=== PATIENT | female | born 1985 | race Caucasian/White ===

== ENCOUNTER 2016-09-19 18:09 | Emergency (ER) | payer OTHER, MEDICAID ==
[~2016-09-19] VITALS: Ht 157.5 cm; Wt 66.4 kg
[~2016-09-19 18:09] MED LIST: AZIT250T6 PO; BIRTH CONTROL; IBUP-1547 PO; PREN1TAB73 PO
--- OUTSIDE RECORDS SUMMARY | 2016-09-19 18:13 | XMS REPORT | Continuity of Care Document ---
Author Author [facility] Organization [facility] Address Unknown Phone Unavailable Support Name Relationship Address Phone ARIELLE ROWAN MADELINE Caregiver [address] [place] [address] Unavailable LINATANISHA ROSALESIC Next Of Kin [address] [phone] Insurance Providers Guarantor Tip Bain Address [address] [phone] Email DENIED/06/24/16 Payer [facility] Community Plan Policy Number [id number] Subscriber's Name Tip Bain Relationship 18 Self Effective Date 16 Expiration Date 16 Payer Other A Insurance Policy Number [id number] Subscriber's Name Bryan Taylor S Relationship 01 Spouse Group Number [id number] Chief Complaint and Reason for Visit Chief Complaint Cough,Fever,Flu,URI Reason for Visit Upper respiratory infection Problems Active Problems Medical Problem Onset Date Status (spontaneous vaginal delivery) Unknown Past Problems Medical Problem Onset Date Upper respiratory infection Unknown Medications Current Home Medications Medication Dose Units Route Directions Days Qty Instructions Start Date Azithromycin 250 Mg Tablet 1 Tab Oral Daily 6 Tablet TAKE TWO TABLETS ON DAY ONE, THEN ONE TABLET DAILY UNTIL ALL TAKEN. Supervising physician Dr. Neftaly Mike Shaper [facility] [address] [phone] 08/27/16 Control 08/27/16 Ibuprofen 800 Mg Tablet 800 Mg Oral Every 8 Hours as needed for Pain 30 Tablet 06/25/16 Pnv95/Ferrous Fumarate/Fa ( Tablet) 1 Each Tablet 1 Tab Oral Daily 90 Tablet 08/27/16 Social History No social history. Hospital Discharge Instructions No hospital discharge instructions. Plan of Care Discharge Date 08/27/16 12:55pm Disposition 01 DISCHARGED HOME, SELF-CARE Condition at Discharge Stable Instructions/Education Provided Upper Respiratory Infection (ED) Prescriptions See Medication Section Additional Instructions/Education Take azithromycin. Follow with primary care provider this week. Functional Status No functional status results. Allergies, Adverse Reactions, Alerts No known allergies. Immunizations No immunization records. Vital Signs Acute Vital Signs Vital Response Date/Time Temperature (Fahrenheit) 97.2 deg F (96.8 - 99.1) 08/27/2016 12:36pm Temperature (Calculated Celsius) 36.46351 degrees C (36.0 - 37.3) 08/27/2016 12:36pm Pulse Rate (adult) 86 bpm (60 - 100) 08/27/2016 12:36pm Respiratory Rate 16 breaths/min (10 - 20) 08/27/2016 12:36pm O2 Sat by Pulse Oximetry 96 % (90 - 100) 08/27/2016 12:36pm Oxygen Delivery Method Room Air 06/25/2016 12:55am Blood Pressure 116/78 mm Hg 08/27/2016 12:36pm Blood Pressure Source Automatic Cuff 06/25/2016 8:35am Height (Feet) 5 feet 08/27/2016 12:36pm Height (Inches) 61.00 inches 08/27/2016 12:36pm Weight (Kilograms) 67.500 kg 08/27/2016 12:36pm Body Mass Index (BMI) 7.0 08/27/2016 12:36pm Results Laboratory Results Test Name Result Units Flags Reference Collection Date/Time Result Date/ Time Comments White Blood Count 8.4 T/MM3 4.5-11.0 06/23/2016 9:07pm 06/23/2016 9: 12pm Red Blood Count 3.94 M/MM3 L 4.00-5.20 06/23/2016 9:07pm 06/23/2016 9: 12pm Hemoglobin 12.2 GM/DL 12-16 06/23/2016 9:07pm 06/23/2016 9:12pm Hematocrit 36.1 % 36-46 06/23/2016 9:07pm 06/23/2016 9:12pm Mean Corpuscular Volume 91.6 UM3 80-100 06/23/2016 9:07pm 06/23/2016 9: 12pm Mean Corpuscular Hemoglobin 31.0 UUG 26-34 06/23/2016 9:07pm 2016 9:12pm Mean Corpuscular Hemoglobin Concent 33.8 GM/DL 31-37 06/23/2016 9:07pm 06/23/2016 9:12pm RDW Standard Deviation 42.0 FL 36.9-50.2 06/23/2016 9:07pm 06/23/2016 9 :12pm Platelet Count 106 T/MM3 L 130-400 06/23/2016 9:07pm 06/23/2016 9:12pm Mean Platelet Volume 12.3 UM3 9.4-12.4 06/23/2016 9:07pm 06/23/2016 9: 12pm Procedures Procedure Status Date Provider(s) Obstetrical care Completed 06/23/16 EL ARMSTRONG MD DELIVERY OF PRODUCTS OF CONCEPTION, EXTERNAL APPROACH Completed 06/24/16 EL ARMSTRONG MD REPAIR PERINEUM MUSCLE, OPEN APPROACH Completed 06/24/16 EL ARMSTRONG MD Encounters Encounter Location Arrival/Admit Date Discharge/Depart Date Attending Provider Departed Emergency Room [facility] 08/27/16 12:16pm 08/27/16 12: 55pm ARIELLE ROWAN APRN Discharged Inpatient [facility] 06/23/16 8:40pm 06/25/16 12:05pm SANDRA BARTLETT MD Recent Diagnosis
[2016-09-19 18:16] VITALS: Ht 157.5 cm; Wt 66.4 kg
--- NOTE | 2016-09-19 18:16 | NUR ---
ROOM PATIENT AMBULATORY TO ROOM. AND BABY
[2016-09-19] MEDS ORDERED: ONDANSETRON ODT 4 MG TAB PO ONE (18:30)
[2016-09-19] MEDS ORDERED: HYDROCODONE/APAP 5 mg/325 mg TABLET PO ONE (18:30)
--- NOTE | 2016-09-19 18:30 | ERPDOC ---
Departure Disposition Decision Date: Sep 19, 2016 Disposition Decision Time: 21:21 Disposition: 01 DISCHARGED HOME, SELF-CARE Impression Impression Impression: Primary Impression: Common bile duct stone Severity: Moderate Condition: Stable Seen By: Mid-level only Patient Instructions: Gallstones (ED) Problems/Meds/Labs Reviewed?: Yes Medications reviewed and manag: Yes Follow up care ordered?: Yes Mental Status: Alert HPI - Abdominal Pain General Chief Complaint: Abdominal Pain Stated Complaint: VOMITING, ABD VANDANA,BACK PAIN Time Seen by Provider: 18:16 Source: patient History/Exam Limitations: no limitations HPI - Abdominal Pain Initial Comments She has had some RUQ and right flank pain today at home. This has been off and on for the last few days. Today around 1300 it became more constant and more intense. She has had some nausea and vomiting today. Denies any fever or chills or diarrhea. She is 12 weeks post and is . She has not had pain like this in the past at all. Occurred At: home Onset: Rapid Duration: 12-24 hrs Quality: sharpness Location: RUQ, right flank Radiation: no radiation 1 - area of pain 2 - area of pain Activities at Onset: none Associated Symptoms: back pain (right mid back/flank), nausea/vomiting, DENIES : chest pain, diaphoresis, fatigue, fever/chills, headache, heartburn, rash, shortness of breath, swelling/mass in abdomen, syncope, weakness Hx of Similar Symptoms: No Allergies: Coded Allergies: No Known Allergies (Unverified , 09/19/16) Past History Past Medical History Pt denies signifigant PMH Surgical History Denies Surgeries Family History Family History: Negative Social History Smoking Status: Never smoker Substance Use Type: does not use Alcohol Intake: none Review of Systems Constitutional Constitutional: DENIES: appetite decrease, chills, dizziness, fatigue, fever, weakness Cardiovascular Cardiac: DENIES: chest pain, orthopnea Rhythm/Rate: DENIES: irregular beat, palpitations Pulmonary Respiratory: DENIES: cough, dyspnea, sputum, tachypnea GI Upper Abdomen: nausea, pain, vomiting Lower Abdomen: DENIES: constipation, diarrhea, pain Integumentary Skin: DENIES: rash Neurological General: DENIES: headache, numbness, tingling, weakness Physical Exam General General Nourishment: well nourished, well developed, appears stated age, no acute distress, adult General Body Habitus: well groomed Vitals and Pain First Documented Vital Signs Date Time Temp Pulse Resp B/P Pulse Ox O2 Delivery O2 Flow Rate FiO2 09/19/16 18:15 88 16 126/71 98 Room Air 09/19/16 18:16 98.2 Weight: Kilograms: Height (feet): 5 Height (inches): 61.00 Triage Pain Scale: RN VS reviewed by Provider: Yes Normal Exams: Neck: Full range of motion, without adenopathy, JVD, bruits or thyromegaly Chest/Resp: Clear all high, with good airflow, and symmetry bilaterally CV: Regular rate and rhythm, without murmur or gallop, Pulses 2+ all extremities, capillary refill, <2 seconds all ext., no pedal edema noted Abdomen: Bowel sounds positive, non-distended, no hepatosplenomegaly, masses or bruits noted Lymphatic: No lymphadenopathy, or lymphedema noted Integumentary: No rashes, hives, or bruising noted Neurologic: Patient is alert, and oriented Psychiatric: Patient exhibits, appropriate attention, emotion and affect Abdomen Inspection: NOT FOUND: distention Palpation: FOUND: Orourke's sign, involuntary guarding, soft, tender (RUQ), NOT FOUND: rebound, voluntary guarding Auscultation: FOUND: normoactive Differential Diagnoses Considering: Biliary Colic, Bowel Obstruction, Cholecystitis, Constipation, GERD, GI Bleed, Hepatitis Progress Results/Orders Orders Procedure Category Date Status Time Lipase LAB 09/19/16 Complete Cbc W/Auto LAB 09/19/16 Complete Diff-Reflex Manual Cmp - Comprehensive LAB 09/19/16 Complete Metabolic Ondansetron Odt PHA 09/19/16 Complete (Zofran Odt) 18:30 Hydrocodone/Acetaminophen PHA 09/19/16 Complete ([place] 5/325) 18:30 Us Gallbladder US 09/19/16 Taken Lab Results Laboratory Tests Test 09/19/16 18:41 White Blood Count 10.6T/MM3 Red Blood Count 4.65M/MM3 Hemoglobin 14.1GM/DL Hematocrit 41.6% Mean Corpuscular Volume 89.5UM3 Mean Corpuscular Hemoglobin 30.3UUG Mean Corpuscular Hemoglobin Concent 33.9GM/DL RDW Standard Deviation 39.7FL Platelet Count 223T/MM3 Mean Platelet Volume 10.7UM3 Immature Granulocyte % (Auto) 0.4% Neutrophils (%) (Auto) 81.4% Lymphocytes (%) (Auto) 9.3% Monocytes (%) (Auto) 8.4% Eosinophils (%) (Auto) 0.4% Basophils (%) (Auto) 0.1% Absolute Immature Granulocyte (auto 0.04T/MM3 Absolute Neutrophils (auto) 8.7T/MM3 Absolute Lymphocytes (auto) 1.0T/MM3 Absolute Monocytes (auto) 0.9T/MM3 Absolute Eosinophils (auto) 0.0T/MM3 Absolute Basophils (auto) 0.0T/MM3 Turbidity < 20 Sodium Level 147MEQ/L Potassium Level 4.2MEQ/L Chloride Level 105MEQ/L Carbon Dioxide Level 27MEQ/L Anion Gap 15MEQ/L Blood Urea Nitrogen 13.0MG/DL Creatinine 0.8MG/DL Glomerular Filtration Rate Calc 83 BUN/Creatinine Ratio 16RATIO Glucose Level 120MG/DL Calculated Osmolality 283MOSM/KG Calcium Level 9.8MG/DL Total Bilirubin 1.60MG/DL Icterus Index < 2 Aspartate Amino Transf (AST/SGOT) 720U/L Alanine Aminotransferase (ALT/SGPT) 354U/L Alkaline Phosphatase 209U/L Total Protein 8.0G/DL Albumin 4.4G/DL Globulin 3.6G/DL Albumin/Globulin Ratio 1.2RATIO Lipase 93U/L Chemistry Specimen Hemolysis < 15 Medications Current ED Medications Ondansetron HCl (Zofran Odt) 4 mg O ONCE PO Last administered on 09/19/16 18: 32; Start 09/19/16 at 18:30; Stop 09/19/16 at 18:31; Status DC Acetaminophen/ Hydrocodone Bitart ([place] 5/325) 1 tab O ONCE PO Last administered on 09/19/16 18:32; Start 09/19/16 at 18:30; Stop 09/19/16 at 18:31 ; Status DC Progress Progress WBC today is 10.6 with 81.4 neutrophils. Total bili is elevated at 1.60, AST-720 , ALT-354, Alk Phos-209. Lipase today is normal at 93. I am going to go ahead and get an US of her gallbladder today while in ER due to elevated liver enzymes. US shows gallstones and thickened gallbladder. Dilated common bile duct as well. Did talk with Dr Garcia regarding labs and US report. Patient will need to have an ERCP done prior to cholecystectomy. Did call and speak with Dr Rm who is agreeable to doing to procedure at [facility]. Will admit to [facility] hospitalist, she is accepted for admission by Dr. Gonzalez. Patient doing well. Pain well controlled with the [place] and nausea is gone with the Zofran. She does elect to go POV to [facility]. She is stable and pain controlled. Will allow transport via POV. Ultrasound US : Reason for Exam: Elevated LFT Ultrasound: Gallbladder US Interpretation: Abnormal (thickened gallbladder with gallstones, dilated common bile duct) JENNYFER GAMINO APRN Sep 19, 2016 18:30
[2016-09-19] MEDS ORDERED: NORE0.355 PO (18:38)
--- NOTE | 2016-09-19 18:42 | NUR ---
LAB LAB DRAW DONE.
[2016-09-19 18:51] LABS: BASOPHILS % (AUTO) 0.1 % (0-2); EOSINOPHILS % (AUTO) 0.4 % (0-4); HCT - HEMATOCRIT 41.6 % (36-46); HGB - HEMOGLOBIN 14.1 GM/DL (12-16); IMMATURE GRANULOCYTE # (AUTO) 0.04 T/MM3 (0.00-0.03); IMMATURE GRANULOCYTE % (AUTO) 0.4 % (0.0-0.5); LYMPHOCYTES % (AUTO) 9.3 % (23-45); MEAN CORPUSCULAR HGB 30.3 UUG (26-34); MEAN CORPUSCULAR HGB CONC(MCHC 33.9 GM/DL (31-37); MEAN CORPUSCULAR VOLUME 89.5 UM3 (80-100); MEAN PLATELET VOLUME 10.7 UM3 (9.4-12.4); MONOCYTES # (AUTO) 0.9 T/MM3 (0-0.8); MONOCYTES % (AUTO) 8.4 % (0-9.0); NEUTROPHILS #(AUTO)-ABSOLUTE 8.7 T/MM3 (1.8-7.7); NEUTROPHILS % (AUTO) 81.4 % (33-66); RED BLOOD COUNT 4.65 M/MM3 (4.00-5.20); WBC - WHITE BLOOD COUNT 10.6 T/MM3 (4.5-11.0)
[2016-09-19 18:56] LABS: ALBUMIN 4.4 G/DL (3.5-5.0); ALBUMIN/GLOBULIN RATIO 1.2 RATIO (1.1-2.2); ALKALINE PHOSPHATASE 209 U/L (38-126); ALT (SGPT) 354 U/L (9-52); ANION GAP 15 MEQ/L (5-15); AST (SGOT) 720 U/L (14-36); BUN/CREATININE RATIO 16 RATIO (6-26); CALCIUM 9.8 MG/DL (8.4-10.2); CHLORIDE 105 MEQ/L (98-107); CO2 - CARBON DIOXIDE 27 MEQ/L (22-30); CREATININE 0.8 MG/DL (0.7-1.2); GLOMERULAR FILTRATION RATE 83; GLUCOSE 120 MG/DL (65-110); LIPASE 93 U/L (23-300); POTASSIUM 4.2 MEQ/L (3.6-5); SODIUM 147 MEQ/L (134-144)
--- NOTE | 2016-09-19 19:39 | NUR ---
UPDATE PATIENT STATES HER PAIN IS STILL THERE, BUT BETTER. IT'S MANAGEABLE.
--- NOTE | 2016-09-19 21:33 | NUR ---
PLACE IN FACILITY PATIENT WILL GO TO [facility], ROOM 5048, [address]. WILL GO IN THROUGH ER AND BE DIRECT ADMIT.
[2016-09-19 21:44] VITALS: BP 137/83; PULSE 107; RESP 16; TEMP 98.2; O2SAT 98
--- NOTE | 2016-09-19 21:44 | NUR ---
DEPART PATIENT DEPARTS ER WITH AND BABY. PRIVATE VEHICLE TO [facility]. CONDITION STABLE.
--- NOTE | 2016-09-19 21:47 | NUR ---
REPORT REPORT CALLED TO: ESA SILVA. REPORT GIVEN.
--- NOTE | 2016-09-20 08:49 | DI ---
Indication: ITS.REASON: RUQ abdominal pain, elevated LFT PROCEDURE: US GALLBLADDER: Encounter: Initial Comparison: None Technique: Grayscale and color Doppler sonographic imaging of the right upper quadrant of the abdomen was performed. Findings: Hepatic parenchyma is homogeneous without evidence for focal mass. The gallbladder contains stones and the wall is borderline thickened measuring 3.6 mm. No pericholecystic fluid appreciated. Sonographic Orourke sign was absent. The common bile duct is mildly dilated to 7 mm. No intrahepatic biliary ductal dilatation identified. Visualized portions of the head and body of the pancreas are unremarkable. The right kidney is present without collecting system dilatation. The right kidney measures 11.1 cm in length. Impression: Cholelithiasis with borderline gallbladder wall thickening and mild dilatation of the common bile duct raising consideration for acute cholecystitis, although sonographic Orourek sign was absent and no significant pericholecystic fluid was appreciated. The above report concurs with the preliminary report provided by virtual radiologic at 8:36 PM. .
== END 2016-09-19 21:44 | disposition home or self-care (01) ==
LOC: ED 18:09
DX: K80.50 Calculus of bile duct without cholangitis or cholecystitis without obstruction (principal)
CPT/HCPCS: 36415; 80053; 83690; 85025